=== PATIENT | female | born 1970 | race Two or more races ===

== ENCOUNTER 2020-07-09 09:28 | Emergency (ER) | payer OTHER ==
[~2020-07-09] VITALS: Ht 165.1 cm; Wt 65.3 kg
[2020-07-09] MEDS ORDERED: MORPHINE SULFATE INJ 4 MG/ML DISP.SYRIN ONE ×2 (10:00→11:33)
[2020-07-09] MEDS ORDERED: MORPHINE SULFATE INJ 2 MG/ML DISP.SYRIN IM ONE ×2 (10:00→12:00)
[2020-07-09] MEDS ORDERED: HYDR-4209 PO (10:17)
[2020-07-09] MEDS ORDERED: IBUP800T54 PO (10:17)
--- NOTE | 2020-07-09 12:02 | NUR ---
Patient discharged to home in stable condition. Written and verbal after care instructions given. Patient verbalizes understanding of instruction. Patient picked up by family member in the waiting room.
[2020-07-09 12:03] VITALS: BP 131/97
== END 2020-07-09 12:03 | disposition home or self-care (01) ==
LOC: ER 09:30
DX: S46.812A Strain of other muscles, fascia and tendons at shoulder and upper arm level, left arm, initial encounter (principal); X58.XXXA Exposure to other specified factors, initial encounter; Y93.89 Activity, other specified; Y92.89 Other specified places as the place of occurrence of the external cause; Y99.8 Other external cause status
CPT/HCPCS: 73030; 96372 ×2; 99284; J2270 ×2